=== PATIENT | male | born 1950 | race Caucasian/White ===

== ENCOUNTER 2018-06-13 12:46 | Observation (INO) | payer BC, OTHER ==
[2018-06-13] MEDS ORDERED: NS 1,000 ML IV ONE (13:17)
[2018-06-13] MEDS ORDERED: HYDROmorphONE/DILAUDID 2 MG/ML INJ IVP ONE (13:17)
[2018-06-13] MEDS ORDERED: KETOROLAC 30 MG/1 ML SDV IVP ONE (13:17)
--- NOTE | 2018-06-13 13:17 | EDPHY ---
H & P Stated Complaint: recent hosp admit for pancreatitis, dx with ileus, now worsening pain Time Seen by Provider: 06/13/18 13:17 - Medical/Surgical History Hx Asthma: No Hx Chronic Respiratory Disease: No Hx Diabetes: No Hx Cardiac Disease: Yes Hx Renal Disease: No Hx Cirrhosis: No Hx Alcoholism: No Hx HIV/AIDS: No Hx Splenectomy or Spleen Trauma: No Other PMH: pancreatitis, hypertension, gout, hyperlipidemia, gerd, burst vessel R eye, R lobectomy - Social History Smoking Status: Never smoked Constitutional: Initial Vital Signs Temperature (C) 36.9 C 06/13/18 13:00 Heart Rate 62 06/13/18 13:00 Respiratory Rate 16 06/13/18 13:00 Blood Pressure 140/85 H 06/13/18 13:00 O2 Sat (%) 94 06/13/18 13:00 O2 Delivery Mode Room Air Allergies/Adverse Reactions: No Known Allergies Allergy (Unverified 06/13/18 13:06) Home Medications: Medication Instructions Recorded Allopurinol 06/13/18 Carvedilol 06/13/18 Famotidine 06/13/18 Levothyroxine 06/13/18 Losartan-Hctz 100-12.5 mg Tab 06/13/18 Magnesium Oxide 400 mg (*) 06/13/18 [place] 7.5-325 Tablet 06/13/18 Primidone 06/13/18 SIMVASTATIN 06/13/18 Tums 500MG (*) 06/13/18 Zofran Odt 06/13/18 traMADol 06/13/18 Medical Decision Making ED Course/Re-evaluation: CHIEF COMPLAINT: N/V, epigastric pain HISTORY OF PRESENT ILLNESS: The patient is a 67 y/o male arriving with his complaining of worsening nausea, vomiting, and epigastric pain. He was admitted to a hospital in [place] on 06/06/18 for intractable nausea, vomiting, and abdominal pain and was diagnosed with pancreatitis. An abdominal CT there showed signs of pancreatitis and neither the CT nor US showed signs of gallstones or dilated biliary tree. He had rising bilirubin during his stay, peaking at 3.7. He developed a paralytic ileus during the admission, causing issues eating and drinking. He also developed a gout flare and was started on pain medications and prednisone for this. He followed up with GI of the [facility] upon returning home this week and had labs performed with Dr. Marie in [place] on Saturday, 2 days ago. They do not yet know the cause of his pancreatitis. He has not had an MRCP yet. He has been on a liquid diet since discharge and reports some continued issues eating and drinking. REVIEW OF SYSTEMS: A comprehensive 10 system review of systems is otherwise negative aside from elements mentioned in the history of present illness and medical decision making. PHYSICAL EXAM: HR, BP, O2 Sat, RR. Temp noted General Appearance: Alert, well hydrated, appropriate, and non-toxic appearing. Head: Atraumatic without scalp tenderness or obvious injury Eyes: Pupils equal, round, reactive to light and accommodation, EOMI, no trauma , no injection. Nose: Atraumatic, no rhinorrhea, clear. Throat: Mucus membranes moist. Neck: Supple, nontender, no lymphadenopathy. Respiratory: No retractions, no distress, no wheezes, and no accessory muscle use. Lungs are clear to auscultation bilaterally. Cardiovascular: Regular rate and rhythm, no murmurs, rubs, or gallops. Good capillary refill all extremities. Gastrointestinal: Abdomen is soft, epigastric tenderness, non-distended, no masses, no rebound, no guarding, no peritoneal signs. Bruising on abdomen. Musculoskeletal: Normal active ROM of all extremities, atraumatic. Neurological: Alert, appropriate, and interactive. The patient has non-focal cranial nerves, motor, sensory, and cerebellar exam. Skin: No rashes, good turgor, no nodules on palpation. Past medical history: pancreatitis, hypertension, gout, hyperlipidemia, GERD, burst vessel R eye Past surgical history: R lobectomy Family history: Noncontributory Social history: at bedside. GI: Dr. Marie at GI of [facility] in [place]. Reviewed patient's discharge paperwork from [facility] in [place]. He was admitted there for pancreatitis on 06/06/18. DIAGNOSTICS/PROCEDURES/CRITICAL CARE TIME: DIFFERENTIAL DIAGNOSIS: The differential diagnosis for the patient's abdominal pain included but was not limited to appendicitis, cholecystitis, hernias, testicular torsion, gastritis, and urinary tract infection. MEDICAL DECISION MAKING: This is a 67 y/o male who was recently admitted for pancreatitis and associated ileus who presents today with continuing nausea, vomiting, and epigastric pain. He has a soft abdomen on exam with epigastric tenderness. Plan for IV, labs, and symptomatic management. 1L IV NS, 30mg IV Toradol, and 1mg IV Dilaudid ordered. Lipase elevated at 530, WBC elevated at 14.6. 1420: Consulted with Dr. Hopson GI. He will consult and recommends admission. MRCP ordered. Spoke with hospitalist service. Dr. Flowers accepts admission. - Data Points Laboratory Results: Laboratory Results 06/13/18 13:23 06/13/18 13:23 06/13/18 06/13/18 13:23 13:23 WBC 14.64 10^3/uL H 10^3/uL (3.80-9.50) RBC 5.09 10^6/uL 10^6/uL (4.40-6.38) Hgb 16.2 g/dL g/dL (13.7-17.5) Hct 46.7 % % (40.0-51.0) MCV 91.7 fL fL (81.5-99.8) MCH 31.8 pg pg (27.9-34.1) MCHC 34.7 g/dL g/dL (32.4-36.7) RDW 12.7 % % (11.5-15.2) Plt Count 407 10^3/uL H 10^3/uL (150-400) MPV 10.5 fL fL (8.7-11.7) Neut % (Auto) Not Reported Lymph % (Auto) Not Reported [place] % (Auto) Not Reported Eos % (Auto) Not Reported Baso % (Auto) Not Reported Nucleat RBC Rel Count Not Reported Absolute Neuts (auto) Not Reported Absolute Lymphs (auto) Not Reported Absolute Monos (auto) Not Reported Absolute Eos (auto) Not Reported Absolute Basos (auto) Not Reported Absolute Nucleated RBC Not Reported Immature Gran % Not Reported Seg Neutrophils % 69.8 % % Band Neutrophils % 0.0 % % Lymphocytes % 22.9 % % Monocytes % 5.2 % % Eosinophils % 2.1 % % Basophils % 0.0 % % Metamyelocytes % 0.0 % % Myelocytes % 0.0 % % Promyelocytes % 0.0 % % Blast Cells % 0.0 % % Immature Gran # Not Reported Absolute Seg Neuts 10.22 10^/uL H 10^/uL (1.70-6.50) Absolute Band Neuts 0.00 10^3/uL 10^3/uL (0.00-0.70) Absolute Lymphocytes 3.35 10^3/uL H 10^3/uL (1.00-3.00) Absolute Monocytes 0.76 10^3/uL 10^3/uL (0.30-0.80) Absolute Eosinophils 0.31 10^3/uL 10^3/uL (0.03-0.40) Absolute Basophils 0.00 10^3/uL L 10^3/uL (0.02-0.10) Absolute Metamyelocyte 0.00 10^3/mL 10^3/mL (0.00-0.00) Absolute Myelocytes 0.00 10^3/mL 10^3/mL (0.00-0.00) Absolute Promyelocytes 0.00 10^3/uL 10^3/uL (0.00-0.00) Absolute Plasma Cells 0.00 10^3/uL 10^3/uL (0.00-0.00) Nucleated RBCs 0 /100 WBC /100 WBC (0-0) Absolute Blast Cells 0.00 10^3/uL 10^3/uL (0.00-0.00) Plasma Cells % 0.0 % % Platelet Estimate ADEQUATE (ADEQ) Sodium 136 mEq/L mEq/L (135-145) Potassium 3.5 mEq/L mEq/L (3.3-5.0) Chloride 90 mEq/L L mEq/L (97-110) Carbon Dioxide 36 mEq/l H mEq/l (22-31) Anion Gap 10 mEq/L mEq/L (6-14) BUN 17 mg/dL mg/dL (7-23) Creatinine 1.2 mg/dL mg/dL (0.7-1.3) Estimated GFR 60 Glucose 105 mg/dL H mg/dL (70-100) Calcium 10.0 mg/dL mg/dL (8.5-10.4) Total Bilirubin 1.0 mg/dL mg/dL (0.1-1.4) Conjugated Bilirubin 0.4 mg/dL mg/dL (0.0-0.5) Unconjugated Bilirubin 0.6 mg/dL mg/dL (0.0-1.1) AST 39 IU/L IU/L (17-59) ALT 56 IU/L IU/L (21-72) Alkaline Phosphatase 89 IU/L IU/L (38-126) Total Protein 6.7 g/dL g/dL (6.3-8.2) Albumin 3.5 g/dL g/dL (3.5-5.0) Lipase 530 IU/L H IU/L (23-300) Medications Given: Discontinued Medications Hydromorphone HCl (Dilaudid) 1 mg IVP EDNOW ONE Stop: 06/13/18 13:18 Last Admin: 06/13/18 13:33 Dose: 1 mg Sodium Chloride (Ns) 1,000 mls @ 0 mls/hr IV EDNOW ONE; Wide Open PRN Reason: Protocol Stop: 06/13/18 13:18 Last Admin: 06/13/18 13:33 Dose: 1,000 mls Ketorolac Tromethamine (Toradol) 30 mg IVP EDNOW ONE Stop: 06/13/18 13:18 Last Admin: 06/13/18 13:32 Dose: 30 mg Departure - Departure Report Scribed for: Srikanth Rai Report Scribed by: Irasema East Date of Report: 06/13/18 Time of Report: 13:41
[2018-06-13 13:56] LABS: PLATELET COUNT 407 10^3/uL (150-400)
[2018-06-13] MEDS ORDERED: PROMETHAZINE HCL 25 MG/ML INJ IVP PRN (15:12)
[2018-06-13] MEDS ORDERED: ONDANSETRON DISINTEGRATING 4 MG TAB PO PRN (15:12)
[2018-06-13] MEDS ORDERED: ONDANSETRON 4 MG/2 ML VIAL IVP PRN (15:12)
[2018-06-13] MEDS ORDERED: HYDROmorphONE/DILAUDID 1 MG/ML INJ IVP PRN (15:12)
[2018-06-13] MEDS ORDERED: ACETAMINOPHEN 325 MG TAB PO PRN (15:12)
[2018-06-13] MEDS: NS 1,000 ML IV SCH (16:13)
--- NOTE | 2018-06-13 16:26 | GHP ---
DATE OF ADMISSION: 06/13/2018 The patient is a pleasant, 67-year-old gentleman with a history of hypertension and gout as well as h ypothyroidism who was recently hospitalized in either [place] or of the [facility] with an episode of pancreatitis. It sounds like at that time, no clear etiology was found. He is not a significant dri nker. He does not have known gallbladder disease. Review of his medications reveals that he takes l osartan/hydrochlorothiazide for blood pressure and he has done so for years. He has continued to asia gale luu as an outpatient. He notes that he has been eating a clear-liquid diet without postprandial abdominal pain, but he has smoldering low-level abdominal pain. He was seen by Dr. Marie who sent some labs to include a modest ly elevated bilirubin, but otherwise no clear etiology for his pancreatitis was found. He presents now with ongoing abdominal pain. He has had some nausea, no vomiting. No fever, chills, cough, sputum, diarrhea. REVIEW OF SYSTEMS: A complete 10-point review of systems was conducted, negative except as noted in the HPI. PAST MEDICAL HISTORY: Gout, hypertension, hypothyroidism, erectile dysfunction, hyperlipidemia. ALLERGIES: At this point, hydrochlorothiazide, which probably causes pancreatitis. MEDICATIONS: Allopurinol, carvedilol, famotidine, levothyroxine, losartan/hydrochlorothiazide, magne sium oxide, [place], primidone, simvastatin, tramadol, Tums, Zofran. SOCIAL HISTORY: No tobacco, rare alcohol, less than a beer a week. FAMILY HISTORY: Notable for cancers. PHYSICAL EXAMINATION: VITAL SIGNS: Temp 37, blood pressure 140/85, pulse 62, breathing 16 times a m inute, 94% on room air. GENERAL: No acute distress. Sclerae are anicteric. Oropharynx is clear. Mucous membranes are mois t. NECK: Supple without lymphadenopathy or JVD. LUNGS: Clear to auscultation bilaterally. HEART: S1, S2. ABDOMEN: Soft, slightly distended. Bowel sounds are present, but hypoactive. EXTREMITIES: Lo wer extremities without edema. Calves nontender. SKIN: Without rash. NEUROLOGIC: Nonfocal. LABORATORY DATA: Sodium 136, potassium 3.5, chloride 90, bicarb 36, BUN 17, creatinine 1.2, glucose 105. LFTs are normal. Lipase slightly elevated at 530. White count 14.6, hematocrit 46. Platelets are 407,000. I discussed the case Dr. Wesly Hopson as well as Dr. Srikanth Rai. ASSESSMENT AND PLAN: 67-year-old gentleman with pancreatitis with ongoing abdominal discomfort. 1. Pancreatitis. I suspect the etiology is hydrochlorothiazide therapy. The fact that he has andres nued to take this may create a smoldering situation. Notably, he does not have postprandial abdomina l pain. 2. We will continue a clear-liquid diet. 3. MRCP has been ordered. 4. Metabolic alkalosis. I suspect this is contraction. 5. Acute kidney injury. Baseline creatinine is not known, but I suspect it to be normal. Actually, the creatinine was 1.0 in 2008 and we will continue to hydrate. 6. Hypertension. We will continue his medications once they have been reconciled. 7. Thrombocytosis. Likely reactive from his recent inflammatory process. DISPOSITION: Observation status. /[id number]/MODL
--- NOTE | 2018-06-13 18:56 | GCON ---
GI CONSULTATION DATE OF CONSULTATION: 06/13/2018 REQUESTING PHYSICIAN: Dr. Srikanth Rai. REASON FOR CONSULTATION: Nausea, vomiting, abdominal pain and distention in the setting of recent bout of pancreatitis. HISTORY OF PRESENT ILLNESS: The patient is a 67-year-old gentleman, who was in his usual state of good health until early June, when on a trip to [place], he developed acute onset of severe nausea and vomiting and abdominal distention. This lasted for several days. He ultimately presented himself to the [facility], where he was admitted and found to have elevated lipase and bilirubin with a CT scan showing findings of pancreatitis with edema around the pancreas and peripancreatic stranding. He is also noted to have an enlarged liver with fatty liver, although the bile ducts were normal. Ultrasound of the gallbladder showed no evidence of stones. MRCP was not performed as that hospital did not have that technology. The patient was treated with IV hydration, antiemetics, pain control, and ultimately was discharged to the hospital with the recommendation for close followup near his home. He was seen in our office on 06/11/2018, by Patti Gaston PA-C , and Dr. Josue Marie. At that time, blood work revealed an elevated white count of 13.4, hemoglobin of 14.5, hematocrit 41.8, and platelets of 354,000. Comprehensive metabolic panel was normal with the exception of a slightly elevated ALT of 45, bilirubin was normal at 1.1, ALT normal at 89, AST normal at 28, lipase was elevated at 117 with normal range for this outpatient lab less than 56. KUB did show gas throughout the bowel with a moderate amount of stool in the distal colon. No air-fluid levels to suggest obstruction. Due to the patient's continued abdominal pain, nausea, and vomiting, he was instructed today to go in the emergency room at [facility] for further evaluation and treatment. The patient has denied any alcohol consumption. He denies any significant NSAID use. He has had no prior episodes of pancreatitis or gallbladder disease. There is no family history of gallbladder disease or pancreatitis. MEDICATIONS: Prior to admission: Allopurinol 100 mg p.o. daily, calcium carbonate 500 mg p.o. daily, carvedilol 12.5 mg p.o. daily, and famotidine 20 mg p.o. daily. Hydrocodone/acetaminophen 7.5/325 mg p.o. p.r.n. pain, levothyroxine 112 mcg p.o. daily, losartan/hydrochlorothiazide 100 mg/12.5 mg p.o. daily, magnesium oxide 400 mg p.o. daily, prednisone 40 mg p.o. daily, primidone 50 mg p.o. daily, and simvastatin 20 mg p.o. daily. PAST MEDICAL HISTORY: Significant for gout, hypertension, hypothyroidism, and GERD. SOCIAL HISTORY: He denies any significant alcohol consumption. He does not smoke tobacco. He does not use tkry-lot-vohupxt medications, illicit drugs, or marijuana. He is . He has 2 children. He lives in [place] with his . REVIEW OF SYSTEMS: Other than complaints of nausea, vomiting, epigastric abdominal pain, and fatigue, was negative for a comprehensive review of systems PHYSICAL EXAMINATION: GENERAL: On my examination today, this is a well- developed, well-nourished male, in emergency room bed, looking in moderate distress. VITAL SIGNS: Temperature was 36.6 Celsius, pulse was 49 and regular , blood pressure 128/92, respiratory rate was 16, O2 saturation 91% on room air. INTEGUMENT: Clear. HEENT: Head atraumatic, normocephalic. Pupils equal , round, react to light. EOMs intact. Sclerae nonicteric. Mucous membranes moist. Dentition good. NECK: Supple. Trachea was midline. LYMPHATICS: No cervical or axillary adenopathy palpated. PULMONARY: Lungs clear to percussion and auscultation. CARDIOVASCULAR: Regular rhythm and rate, normal S1, S2 without murmur. Peripheral pulses strong bilaterally. No pedal edema. GASTROINTESTINAL: Abdomen distended. Positive bowel sounds. No liver or spleen tip palpable. Mild tenderness in the epigastrium to deep palpation without palpable mass or rebound. EXTREMITIES: Without deformity. NEURO: Patient was alert and oriented x3. NEUROLOGICAL: There are no focal neurologic deficits. LABS: White count 14.64, hemoglobin 16.2, hematocrit 46.7, platelets 407,000. Sodium 136, potassium 3.5, chloride 90, CO2 was 36, anion gap 10, BUN 17, creatinine 1.2, glucose 105. LFTs normal. Lipase elevated at 530. IMPRESSION: Recent bout of pancreatitis with CT evidence of pancreatic inflammation, now with continued nausea, vomiting, and mildly elevated lipase, possibly related to pancreatitis with underlying ileus. Etiology of pancreatitis is unclear. No evidence of cholelithiasis or choledocholithiasis. The patient is on a thiazide diuretic and this has been known to cause pancreatitis in the literature. RECOMMENDATIONS: 1. Would hold thiazide diuretic. 2. Clear liquids as tolerated. 3. IV hydration and antiemetics. 4. Will follow with you. /[id number]/MODL MTDD
[2018-06-13] MEDS: oxyCODONE IR 5 MG TAB PO PRN (23:17)
[2018-06-14] MEDS: NS 1,000 ML IV SCH ×2 (01:25→09:27)
[2018-06-14] MEDS ORDERED: CALCIUM CARBONATE 500 MG CHEWABLE TAB PO PRN (03:53)
[2018-06-14] MEDS: HYDROmorphONE/DILAUDID 2 MG/ML INJ IVP PRN ×4 (04:28→23:11)
[2018-06-14] MEDS ORDERED: KETOROLAC 15 MG/1 ML SDV IVP ONE (06:20)
[2018-06-14] MEDS ORDERED: BISACODYL 10 MG SUPP PR ONE (10:22)
--- NOTE | 2018-06-14 10:29 | SOAPPROG ---
SOAP Progress Note Assessment/Plan: Assessment/Plan: Abdominal pain, nausea. Suspect all due to just continued active, slowly resolving, pancreatitis from his initial admission in [place]. In turn, ? pancreatitis then due to HCTZ (now off). MRCP now still shows he's in the midst of extensive inflammation. - time - change IVF to D51/2 with K - stay with clears for now - avoid ketorolac or NSAIDs; if needed for pain, increase dilaudid - dulcolax suppos x 1; if no benefit, MOM x 1 06/14/18 10:25 Subjective: cc: pancreatitis Still with episodes of pain, bilateral lower quadrant, 04/11 last nite. No bm since here. Tolerating clears, but gives him some pain. No rigors, chills. Of note, this is my first encounter with this patient. Objective: Vital Signs Temp Pulse Resp BP Pulse Ox 36.6 C 67 16 158/98 H 95 06/14/18 07:25 06/14/18 07:25 06/14/18 07:25 06/14/18 07:25 06/14/18 07:25 Laboratory Results 06/14/18 04:22 06/13/18 06/14/18 06/15/18 05:59 05:59 05:59 Intake Total 2616 Output Total 50 Balance 2566 MRCP with continued active pancreatitis, with extensive peripancreating stranding and fluid. No biliary abnormalities. Physical Exam - Physical Exam General Appearance: WD/WN, alert, no apparent distress EENT: PERRL/EOMI, normal ENT inspection, pharynx normal, TMs normal Neck: non-tender, full range of motion, supple, normal inspection Respiratory: chest non-tender, lungs clear, normal breath sounds Cardiac/Chest: normal peripheral pulses, regular rate, rhythm Peripheral Pulses: 2+: carotid (R), carotid (L), femoral (R), femoral (L), dorsalis-pedis (R), dorsalis-pedis (L) Abdomen: normal bowel sounds, soft, No non-tender (moderate tenderness in the epigastric area.) Male Genitalia: deferred Rectal: deferred Back: Normal inspection Skin: normal color, warm/dry Lymphatic: no adenopathy Extremities: normal range of motion, non-tender, normal inspection, normal capillary refill Neuro/Psych: no motor/sensory deficits, alert, normal mood/affect, oriented x 3 ICD10 Worksheet Patient Problems: Problems Problem Status Onset Pancreatitis, acute Acute - ICD10 Problem Qualifiers (1) Pancreatitis, acute Qualifiers: Pancreatitis type: drug induced Acute pancreatitis complication: no infection or necrosis Qualified Code(s): K85.30 - Drug induced acute pancreatitis without necrosis or infection
[2018-06-14] MEDS ORDERED: traMADol 50 MG TAB PO PRN (12:15)
[2018-06-14] MEDS: LOSARTAN POTASSIUM 50 MG TAB PO SCH (12:37)
[2018-06-14] MEDS ORDERED: HYDROCODONE/APAP 5/325 TAB PO PRN ×2 (13:00)
--- NOTE | 2018-06-14 13:48 | ASMTCMCOM ---
CM Note CM Note Notes: Pt was admitted with pancreatitis and ileus. He was also recently in a hospital in [place] for the same symptoms. He lives in [place] with his . CM will follow for any d/c needs. D/C Plan: Likely independent when medically cleared. Date Signed: 06/14/2018 01:47 PM Electronically Signed By:ISAURA Addison
--- NOTE | 2018-06-14 15:28 | HOSPPROG ---
Hospitalist Progress Note Assessment/Plan: Subjective Follow-up on abdominal pain and pancreatitis. Patient states he was able tolerate a liquid diet this morning. He did ask for Toradol for pain control as he stated it was helpful early in the morning. I explained him that were trying to avoid Toradol on NSAIDs in general and that we would prefer to use Dilaudid. Patient seemed agreeable to this plan. Reviewed that the etiology of his pancreatitis is uncertain but there is some suspicion that he may be hydrochlorothiazide related. Objective Vital signs as detailed below Exam General-awake alert conversant no acute distress Heart-regular rate and rhythm no murmurs Lungs-Clear to auscultation with normal respiratory effort Abdomen-soft , tender at the epigastrium with deep palpation, nondistended, normal bowel sounds -no Ruffin catheter in place Extremities-no significant pitting edema or calf pain with palpation Skin-no concerning skin rashes noted Labs as detailed below Assessment and plan Pancreatitis-acute. Possibly related to hydrochlorothiazide. Continue with clear liquids and supportive IV fluids and pain control. Reassess again tomorrow. Abdominal pain-seems reasonably well controlled with current IV Dilaudid. I have also added back his oral home pain medications. Acute kidney injury-resolved. Likely related to volume depletion. Leukocytosis-possibly reactive. Monitor for fevers. Recheck again in the morning. Hyponatremia-likely hypovolemia related. Trend with IV fluids. Hypertension-mild elevations but may be related to pain response as well. Patient is currently on losartan and Coreg which I have resumed today. Hydrochlorothiazide has been taken off of his active medication list. We may need to consider adding a calcium channel zach if additional medical therapy needed. Hyperlipidemia-simvastatin. Gout-allopurinol. Hypothyroidism-levothyroxine at 112 mcg daily. DVT prophylaxis-Lovenox. Disposition-hopefully home in the coming 1-2 days if he can tolerate a diet and pain is controlled. Objective: Vital Signs Temp Pulse Resp BP Pulse Ox 36.9 C 66 16 177/108 H 94 06/14/18 14:58 06/14/18 14:58 06/14/18 14:58 06/14/18 14:58 06/14/18 14:58 Laboratory Results 06/14/18 04:22 06/13/18 06/14/18 06/15/18 05:59 05:59 05:59 Intake Total 2616 Output Total 50 650 Balance 9943 -286 ICD10 Worksheet Patient Problems: Problems Problem Status Onset Pancreatitis, acute Acute
[2018-06-14] MEDS ORDERED: MAGNESIUM HYDROXIDE 30 ML UDCUP PO ONE (17:00)
[2018-06-14] MEDS: CARVEDILOL 6.25 MG TAB PO SCH (17:25)
[2018-06-14] MEDS: D5W 1/2 NS W/ 20 KCl/L 1,000 ML IV SCH (20:44)
[2018-06-15] MEDS ORDERED: BISACODYL 10 MG SUPP PR PRN (02:00)
[2018-06-15] MEDS ORDERED: MAGNESIUM HYDROXIDE 30 ML UDCUP PO PRN (02:00)
[2018-06-15] MEDS ORDERED: POLYETHYLENE GLYCOL 3350 17 GM PKT PO PRN (02:00)
[2018-06-15] MEDS: LEVOTHYROXINE 112 MCG TAB PO SCH (05:01)
[2018-06-15 06:10] LABS: PLATELET COUNT 321 10^3/uL (150-400)
[2018-06-15] MEDS: D5W 1/2 NS W/ 20 KCl/L 1,000 ML IV SCH (06:10)
[2018-06-15] MEDS: HYDROmorphONE/DILAUDID 2 MG/ML INJ IVP PRN ×3 (08:35→21:44)
[2018-06-15] MEDS: ALLOPURINOL 100 MG TAB PO SCH (08:38)
[2018-06-15] MEDS: PRIMIDONE 50 MG TAB PO SCH (08:38)
[2018-06-15] MEDS: CARVEDILOL 6.25 MG TAB PO SCH ×2 (08:38→17:34)
[2018-06-15] MEDS: FAMOTIDINE 20 MG TAB PO SCH (08:38)
[2018-06-15] MEDS: ATORVASTATIN CALCIUM 10 MG TAB PO SCH (08:38)
[2018-06-15] MEDS: LOSARTAN POTASSIUM 50 MG TAB PO SCH (08:38)
[2018-06-15] MEDS ORDERED: MAGNESIUM HYDROXIDE 30 ML UDCUP PO ONE (14:42)
--- NOTE | 2018-06-15 14:45 | SOAPPROG ---
SOAP Progress Note Assessment/Plan: Assessment/Plan: Abdominal pain. Suspect all due to just continued active, slowly resolving, pancreatitis from his initial admission in [place]. In turn, ? pancreatitis then due to HCTZ (now off). Tolerated clears. - time - buffcap - agree with advancing diet to full liquids - avoid ketorolac or NSAIDs; if needed for pain, increase dilaudid. ? start transitioning tomorrow to oral narcotics; as per hospitalist - MOM x 1 06/15/18 14:43 Subjective: cc: pancreatitis Less abdominal pain. Tolerated clears. One small b.m. No rigors, chills, sweats. Objective: Vital Signs Temp Pulse Resp BP Pulse Ox 36.7 C 56 L 16 130/89 H 96 06/15/18 11:51 06/15/18 11:51 06/15/18 11:51 06/15/18 11:51 06/15/18 11:51 Laboratory Results 06/15/18 04:30 06/15/18 04:30 06/14/18 06/15/18 06/16/18 05:59 05:59 05:59 Intake Total 2616 1945 Output Total 50 1450 1500 Balance 2566 495 -1500 Physical Exam - Physical Exam General Appearance: WD/WN, alert, no apparent distress EENT: PERRL/EOMI, normal ENT inspection, pharynx normal, TMs normal Neck: non-tender, full range of motion, supple, normal inspection Respiratory: chest non-tender, lungs clear, normal breath sounds Cardiac/Chest: normal peripheral pulses, regular rate, rhythm Peripheral Pulses: 2+: carotid (R), carotid (L), femoral (R), femoral (L), dorsalis-pedis (R), dorsalis-pedis (L) Abdomen: normal bowel sounds, non-tender, soft Male Genitalia: deferred Rectal: deferred Back: Normal inspection Skin: normal color, warm/dry Lymphatic: no adenopathy Extremities: normal range of motion, non-tender, normal inspection, normal capillary refill Neuro/Psych: no motor/sensory deficits, alert, normal mood/affect, oriented x 3 ICD10 Worksheet Patient Problems: Problems Problem Status Onset Pancreatitis, acute Acute - ICD10 Problem Qualifiers (1) Pancreatitis, acute Qualifiers: Pancreatitis type: drug induced Acute pancreatitis complication: no infection or necrosis Qualified Code(s): K85.30 - Drug induced acute pancreatitis without necrosis or infection
--- NOTE | 2018-06-15 17:51 | HOSPPROG ---
Hospitalist Progress Note Assessment/Plan: Subjective Follow-up on abdominal pain and pancreatitis. Patient states pain is better today as compared to yesterday. He does ask about advancing his diet and possibly having toast. Otherwise no major events overnight. Objective Vital signs as detailed below Exam General-awake alert conversant no acute distress Heart-regular rate and rhythm no murmurs Lungs-Clear to auscultation with normal respiratory effort Abdomen-soft , tender at the epigastrium with deep palpation, nondistended, normal bowel sounds -no Ruffin catheter in place Extremities-no significant pitting edema or calf pain with palpation Skin-no concerning skin rashes noted Labs as detailed below Assessment and plan Pancreatitis-acute. Possibly related to hydrochlorothiazide. Improving. Advance diet to full liquid. Per Gastroenterology's note as well look at using more oral pain medications starting tomorrow. Abdominal pain-seems reasonably well controlled with current IV Dilaudid. I have also added back his oral home pain medications. Acute kidney injury-resolved. Likely related to volume depletion. Leukocytosis-possibly reactive. Monitor for fevers. Trending down from 14 to 12. Hyponatremia-likely hypovolemia related. Resolved with IV fluids with a sodium level of 137 today. Hypertension-mild elevations but may be related to pain response as well. Patient is currently on losartan and Coreg. Hydrochlorothiazide has been taken off of his active medication list. We may need to consider adding a calcium channel zach if additional medical therapy needed. Hyperlipidemia-simvastatin. Gout-allopurinol. Hypothyroidism-levothyroxine at 112 mcg daily. DVT prophylaxis-lower risk as patient is ambulatory. Disposition-hopefully home in the coming 1-2 days if he can tolerate a diet and pain is controlled. Objective: Vital Signs Temp Pulse Resp BP Pulse Ox 36.6 C 63 12 125/77 H 93 06/15/18 15:21 06/15/18 15:21 06/15/18 15:21 06/15/18 15:21 06/15/18 15:21 Laboratory Results 06/15/18 04:30 06/15/18 04:30 06/14/18 06/15/18 06/16/18 05:59 05:59 05:59 Intake Total 2616 1945 1100 Output Total 50 0160 1675 Balance 2566 495 -575 ICD10 Worksheet Patient Problems: Problems Problem Status Onset Pancreatitis, acute Acute
[2018-06-16] MEDS: HYDROmorphONE/DILAUDID 2 MG/ML INJ IVP PRN (03:49)
[2018-06-16] MEDS: LEVOTHYROXINE 112 MCG TAB PO SCH (05:05)
[2018-06-16] MEDS: CARVEDILOL 6.25 MG TAB PO SCH (07:59)
[2018-06-16] MEDS: ALLOPURINOL 100 MG TAB PO SCH (07:59)
[2018-06-16] MEDS: ATORVASTATIN CALCIUM 10 MG TAB PO SCH (07:59)
[2018-06-16] MEDS: LOSARTAN POTASSIUM 50 MG TAB PO SCH (07:59)
[2018-06-16] MEDS: oxyCODONE IR 5 MG TAB PO PRN (07:59)
[2018-06-16] MEDS: PRIMIDONE 50 MG TAB PO SCH (07:59)
[2018-06-16] MEDS: FAMOTIDINE 20 MG TAB PO SCH (07:59)
[2018-06-16 11:40] VITALS: BP 108/68
--- NOTE | 2018-06-16 12:14 | HOSPPROG ---
Hospitalist Progress Note Assessment/Plan: 67 yo M w pancreatitis pancreatitis: presumed 2/2 hctz no etoh mmrcp normal now eating advance to regular diet home today if tolerates sandwich >30 minutes Subjective: eating w no increase in pain Objective: Vital Signs Temp Pulse Resp BP Pulse Ox 36.3 C 51 L 16 108/68 94 06/16/18 11:36 06/16/18 11:36 06/16/18 11:36 06/16/18 11:36 06/16/18 11:36 Laboratory Results 06/15/18 04:30 06/15/18 04:30 06/15/18 06/16/18 06/17/18 05:59 05:59 05:59 Intake Total 1945 1100 Output Total 1450 1675 1200 Balance 495 -499 -1200 - Physical Exam Constitutional: no apparent distress, appears nourished Eyes: PERRL, anicteric sclera Ears, Nose, Mouth, Throat: moist mucous membranes, hearing normal Cardiovascular: regular rate and rhythym, no murmur, rub, or gallop Respiratory: no respiratory distress, no rales or rhonchi Gastrointestinal: normoactive bowel sounds, soft, non-tender abdomen Genitourinary: no bladder fullness, No tobin in urethra Skin: warm, normal color Musculoskeletal: full muscle strength, no muscle tenderness Neurologic: AAOx3, sensation intact bilaterally Psychiatric: interacting appropriately ICD10 Worksheet Patient Problems: Problems Problem Status Onset Pancreatitis, acute Acute
--- NOTE | 2018-06-16 12:49 | SOAPPROG ---
SOAP Progress Note Assessment/Plan: Assessment/Plan: Abdominal pain. Improved. Suspect all due to just continued active, slowly resolving, pancreatitis from his initial admission in [place]. In turn, ? pancreatitis then due to HCTZ (now off). Tolerated advanced diet. From a G.I. standpoint, if tolerates a more regular diet, with good pain control , o.k. to d/c home. Upon discharge, recommend: a) narcotic prn pain b) M.O.M. prn constipation, secondary to the above I will sign off. I'll arrange f/u with his outpt G.I. provider. Otherwise, please call if we can be of further help [phone] Thanks! 06/16/18 12:45 Subjective: cc: pancreatitis Pain much improved. Tolerated diet. No rigors, chills, sweats, hematemesis. Objective: Vital Signs Temp Pulse Resp BP Pulse Ox 36.3 C 51 L 16 108/68 94 06/16/18 11:36 06/16/18 11:36 06/16/18 11:36 06/16/18 11:36 06/16/18 11:36 Laboratory Results 06/15/18 04:30 06/15/18 04:30 06/15/18 06/16/18 06/17/18 05:59 05:59 05:59 Intake Total 1945 1100 Output Total 1450 1675 1200 Balance 495 -225 1200 Physical Exam - Physical Exam General Appearance: WD/WN, alert, no apparent distress EENT: PERRL/EOMI, normal ENT inspection, pharynx normal, TMs normal Neck: non-tender, full range of motion, supple, normal inspection Respiratory: chest non-tender, lungs clear, normal breath sounds Cardiac/Chest: normal peripheral pulses, regular rate, rhythm Peripheral Pulses: 2+: carotid (R), carotid (L), femoral (R), femoral (L), dorsalis-pedis (R), dorsalis-pedis (L) Abdomen: normal bowel sounds, non-tender, soft Male Genitalia: deferred Rectal: deferred Back: Normal inspection Skin: normal color, warm/dry Lymphatic: no adenopathy Extremities: normal range of motion, non-tender, normal inspection, normal capillary refill Neuro/Psych: no motor/sensory deficits, alert, normal mood/affect, oriented x 3 ICD10 Worksheet Patient Problems: Problems Problem Status Onset Pancreatitis, acute Acute - ICD10 Problem Qualifiers (1) Pancreatitis, acute Qualifiers: Pancreatitis type: drug induced Acute pancreatitis complication: no infection or necrosis Qualified Code(s): K85.30 - Drug induced acute pancreatitis without necrosis or infection
--- NOTE | 2018-06-16 17:36 | GDS ---
DISCHARGE DIAGNOSES: 1. Pancreatitis, presumed secondary to hydrochlorothiazide therapy. 2. Ileus. 3. Abdominal pain. HOSPITAL COURSE: Please see admission history and physical by Dr. Ebenezer Payan. The patient prese nted with ongoing abdominal pain and had been hospitalized in [place] with abdominal pain and pancrea titis. He does not drink alcohol. He had an MRCP here showing pancreatitis but no ductal abnormalit y, no stones. He does not drink alcohol. He did take lisinopril/hydrochlorothiazide. This is presu med to be the etiology. The patient did reasonably well with a clear liquid diet, advanced to regula r diet and sent home today. I gave him a prescription for losartan, to divorce the hydrochlorothiazi de and combination pill. Autoimmune serologies were not sent. /[id number]/MODL
== END 2018-06-16 15:59 | disposition home or self-care (01) ==
LOC: F3E 15:41
PROVIDERS: ADMIT Internal Medicine; ATTEND Internal Medicine
DX: K85.30 Drug induced acute pancreatitis without necrosis or infection (principal); T50.2X5A Adverse effect of carbonic-anhydrase inhibitors, benzothiadiazides and other diuretics, initial encounter; K56.0 Paralytic ileus; N17.9 Acute kidney failure, unspecified; E86.9 Volume depletion, unspecified; E87.1 Hypo-osmolality and hyponatremia; M10.9 Gout, unspecified; E78.5 Hyperlipidemia, unspecified; K21.9 Gastro-esophageal reflux disease without esophagitis
CPT/HCPCS: 74181; 96361; 96374; 96375; 96376; 99285; G0378; J1170; J1885

== ENCOUNTER → 2018-07-02 | Outpatient (CLI) | payer BC | LOC: FIMAGING 07:08 | PROVIDERS: ATTEND Internal Medicine | DX: K85.30 Drug induced acute pancreatitis without necrosis or infection (principal); I70.0 Atherosclerosis of aorta; K76.0 Fatty (change of) liver, not elsewhere classified ==

== ENCOUNTER → 2018-07-18 | Outpatient (CLI) | payer BC | LOC: FIMAGING 15:44 | PROVIDERS: ATTEND Internal Medicine | DX: R51 Headache (principal) ==

== ENCOUNTER → 2018-08-19 | Outpatient (CLI) | payer BC ==
[~2018-08-19] MED LIST: IOPAMIDOL (ISOVUE-300) 100 ML BTL ONE
== END ==
LOC: FIMAGING 08:49
PROVIDERS: ATTEND Internal Medicine
DX: R10.30 Lower abdominal pain, unspecified (principal); R11.0 Nausea; K86.89 Other specified diseases of pancreas
CPT/HCPCS: 82565-PO; Q9967

== ENCOUNTER → 2018-10-30 | Outpatient (CLI) | payer BC, OTHER | LOC: FIMAGING 08:43 | PROVIDERS: ATTEND Internal Medicine | DX: K86.89 Other specified diseases of pancreas (principal); I25.10 Atherosclerotic heart disease of native coronary artery without angina pectoris; K57.30 Diverticulosis of large intestine without perforation or abscess without bleeding; N40.0 Benign prostatic hyperplasia without lower urinary tract symptoms | CPT/HCPCS: 82565-PO; Q9967 ==